=== PATIENT | male | born 1970 | race Caucasian/White ===

== ENCOUNTER 2021-04-09 08:04 | Emergency (ER) | payer SELFPAY ==
[~2021-04-09] VITALS: Ht 190.5 cm; Wt 117.9 kg
[2021-04-09] MEDS ORDERED: CEPH500T PO (08:51)
[2021-04-09] MEDS ORDERED: IBUP800T27 PO (08:51)
[2021-04-09 08:53] VITALS: BP 150/85
== END 2021-04-09 09:03 | disposition home or self-care (01) ==
LOC: ER 08:04
DX: L60.0 Ingrowing nail (principal); F17.210 Nicotine dependence, cigarettes, uncomplicated; I10 Essential (primary) hypertension